=== PATIENT | female | born 1970 | race Caucasian/White ===

== ENCOUNTER 2016-03-21 14:35 | Emergency (ER) | payer OTHER ==
[~2016-03-21] VITALS: Ht 154.9 cm; Wt 75.9 kg
[~2016-03-21 14:35] MED LIST: ALPRAZOLAM0.25 M2 PO; CIPROFLOXACIN500 M1 PO; METRONIDAZOLE500 MG PO; NICOTINE PATCH1 EAC2 TD; PHENERGAN-CODE120 ML PO; PROAIR HFA8.5 GM IH; ZOFRAN ODT8 MG PO
[2016-03-21 15:17] LABS: HEMATOCRIT 41.1 % (36.0-46.0); MCHC 34.1 G/DL (30.0-36.0); MEAN PLAT.VOLUME 9.8 uM^3 (9.5-12.4); PLATELET COUNT 292 K/uL (156-360); RBC DIS.WIDTH-SD 40.7 % (39-53); RED BLOOD COUNT 4.67 M/uL (3.80-5.20); WHITE BLOOD COUNT 7.1 K/uL (4.1-10.2)
[2016-03-21 15:52] LABS: ANION GAP 7 MEQ/L (2-14); CHLORIDE 107 MEQ/L (99-109); POTASSIUM 4.2 MEQ/L (3.7-5.4); SAMPLE HEMOLYSIS CHECK 1; SAMPLE ICTERIC CHECK 0; SAMPLE LIPEMIA CHECK 0; SODIUM 140 MEQ/L (136-147)
[2016-03-21 15:58] LABS: GFR ESTIMATE (CALCULATED) > 59 mL/min/; GLUCOSE 85 mg/dL (70-99); UREA NITROGEN (BUN) 10 mg/dL (9-23)
[2016-03-21 16:00] LABS: BILIRUBIN NEGATIVE; BLOOD NEGATIVE; COLOR YELLOW ((YELLOW)); GLUCOSE (STRIP) NEGATIVE; KETONES NEGATIVE; LEUKOCYTES NEGATIVE; NITRITE NEGATIVE; PROTEIN (STRIP) NEGATIVE; SPECIFIC GRAVITY 1.014 (1.000-1.030); UROBILINOGEN 0.2 MG/DL (0.2-1.0)
[2016-03-21 16:07] LABS: ADD MIUA? NO; UCUL ADDED? NO
[2016-03-21 16:16] LABS: QUANTITATIVE HCG < 4.0 MIU/ML
[2016-03-21 16:52] VITALS: BP 174/104
== END 2016-03-21 16:52 | disposition home or self-care (01) ==
LOC: EME 14:35
PROVIDERS: Nurse Practitioner Family
DX: K64.4 Residual hemorrhoidal skin tags (principal); F17.200 Nicotine dependence, unspecified, uncomplicated
CPT/HCPCS: 74020; 80048; 81003; 84702; 85027; 86850; 86900; 86901; 99281; 99283

== ENCOUNTER 2017-08-19 07:01 | Day surgery (SDC) | payer OTHER ==
[~2017-08-19] VITALS: Ht 154.9 cm; Wt 79.4 kg
[~2017-08-19 07:01] MED LIST changes: +TYLENOL EXTRA500 MG PO
[2017-08-19 07:29] VITALS: BP 152/95
[2017-08-19] MEDS ORDERED: HYDROCODON-ACE1 EAC7 PO (10:38)
[2017-08-19] MEDS ORDERED: IBUPROFEN800 MG PO (10:38)
[2017-08-19 11:25] VITALS: BP 153/98
[2017-08-19 12:10] VITALS: BP 147/79
== END 2017-08-19 12:15 | disposition home or self-care (01) ==
LOC: SDC 07:01
PROC: 0UDB7ZX Extraction of Endometrium, Via Natural or Artificial Opening, Diagnostic (ICD-10-PCS; principal; 2017-08-19)
PROC: 8E0UXY7 Examination of Female Reproductive System (ICD-10-PCS; principal; 2017-08-19)
PROC: 0UB98ZX Excision of Uterus, Via Natural or Artificial Opening Endoscopic, Diagnostic (ICD-10-PCS; principal; 2017-08-19)
DX: N93.0 Postcoital and contact bleeding (principal); N84.0 Polyp of corpus uteri; A60.04 Herpesviral vulvovaginitis; N91.1 Secondary amenorrhea; N39.3 Stress incontinence (female) (male); Z80.41 Family history of malignant neoplasm of ovary; Z80.49 Family history of malignant neoplasm of other genital organs; Z86.010 Personal history of colon polyps; E66.3 Overweight; Z68.31 Body mass index [BMI] 31.0-31.9, adult; Z80.3 Family history of malignant neoplasm of breast; Z83.3 Family history of diabetes mellitus; F17.200 Nicotine dependence, unspecified, uncomplicated
CPT/HCPCS: 84702; 87254; 88305; J1100; J1170; J1885; J2405; J3010